=== PATIENT | male | born 1935 | race Caucasian/White ===

== ENCOUNTER → 2018-04-14 | Outpatient (CLI) | payer MEDICARE, BC | END | disposition home or self-care (01) | LOC: LAB SHORT 11:42 → LAB EV 11:42 | DX: S50.312A Abrasion of left elbow, initial encounter (principal) | CPT/HCPCS: 87070; 87075; 87077; 87147; 87186; 87205 ==

== ENCOUNTER 2019-04-30 15:11 | Emergency (ER) | payer MEDICARE, BC ==
[~2019-04-30] VITALS: Ht 162.6 cm; Wt 68.0 kg
[2019-04-30] MEDS ORDERED: Simvastatin10 MG PO (15:19)
[2019-04-30] MEDS ORDERED: LORCET 5-325 M1 EACH PO (15:19)
[2019-04-30] MEDS ORDERED: WIXELA 500-501 EACH INH (15:19)
[2019-04-30] MEDS ORDERED: Protonix40 MG PO (15:20)
[2019-04-30] MEDS ORDERED: DABI150C (15:20)
[2019-04-30 16:11] LABS: BASOPHILS ABSOLUTE AUTO 0.03 K/mm3 (0.00-0.23); BASOPHILS PERCENT AUTO 0 % (0-2); EOSINOPHILS ABSOLUTE AUTO 0.05 K/mm3 (0.00-0.68); EOSINOPHILS PERCENT AUTO 1 % (0-6); Hematocrit 39.9 % (37.0-53.0); Hemoglobin 13.6 g/dL (13.5-17.5); IMMATURE GRAN ABSOLUTE AUTO 0.03 K/mm3 (0.00-0.10); IMMATURE GRAN PERCENT AUTO 0 % (0-1); LYMPHOCYTES ABSOLUTE AUTO 0.48 K/mm3 (0.84-5.20); LYMPHOCYTES PERCENT AUTO 7 % (21-46); MONOCYTES ABSOLUTE AUTO 0.71 K/mm3 (0.16-1.47); MONOCYTES PERCENT AUTO 10 % (4-13); Mean Corpuscular HGB 31.5 pg (26.0-34.0); Mean Corpuscular HGB Conc 34.1 g/dL (31.5-36.5); Mean Corpuscular Volume 92 fL (80-100); Mean Platelet Volume 10.2 fL (9.1-12.4); NEUTROPHILS ABSOLUTE AUTO 5.99 K/mm3 (1.96-9.15); NEUTROPHILS PERCENT AUTO 82 % (41-73); Platelet Count 184 K/mm3 (150-400); Red Blood Cell Count 4.32 M/mm3 (4.30-5.90); White Blood Cell Count 7.29 K/mm3 (4.00-11.30)
[2019-04-30 16:31] LABS: Alanine Aminotransfer (ALT/SGP 27 U/L (12-78); Albumin, Blood 3.3 g/dL (3.4-5.0); Albumin/Globulin Ratio 1.1 (0.8-1.8); Alk Phos 69 U/L (50-136); Anion Gap 5 mmol/L (6-16); Aspartate Aminotrans (AST/SGOT 26 U/L (12-37); Bilirubin, Total 0.7 mg/dL (0.1-1.0); Blood Urea Nitrogen 16 mg/dL (8-24); Bun/Creatinine Ratio 14.2 (12.0-20.0); CO2, Blood 24 mmol/L (21-32); Calcium, Blood 9.1 mg/dL (8.5-10.1); Chloride, Blood 107 mmol/L (98-108); Creatinine, Blood 1.13 mg/dL (0.60-1.20); Glomerular Filtration Rate >60 (60-); Glucose, Blood 111 mg/dL (70-99); Potassium, Blood 3.9 mmol/L (3.5-5.5); Sodium, Blood 136 mmol/L (136-145); Total Protein, Blood 6.3 g/dL (6.4-8.2)
[2019-04-30] MEDS ORDERED: Pepto-Bismol262 MG PO (17:09)
== END 2019-04-30 17:18 | disposition home or self-care (01) ==
LOC: ER 15:11
PROVIDERS: Physician Assistant
DX: K52.9 Noninfective gastroenteritis and colitis, unspecified (principal); Z85.038 Personal history of other malignant neoplasm of large intestine; Z79.899 Other long term (current) drug therapy; Z79.01 Long term (current) use of anticoagulants
CPT/HCPCS: 36415; 74176; 80053; 83690; 85025; 99284-25

== ENCOUNTER 2019-09-11 08:21 | Day surgery (SDC) | payer MEDICARE, BC ==
[~2019-09-11] VITALS: Ht 165.1 cm; Wt 72.3 kg
[~2019-09-11 08:21] MED LIST: ALBU90OI INH; BALANCED B-100100 MG PO; CALCIUM-MAGNES1 EAC3 PO; DABI150C; DABI150C PO; LORCET 5-325 M1 EACH PO; METAMUCIL0.4 GM PO; MIRALAX17 GM PO; MSM500 MG PO; PANT40 PO; PREVAGEN PO; Pepto-Bismol262 MG PO; Protonix40 MG PO; SIMV10 PO; Simvastatin10 MG PO; VITAMIN B122500 MCG PO; VITAMIN D32000 UNI3 PO; WIXELA 500-501 EACH INH
--- NOTE | 2019-09-11 09:46 | NUR ---
09/11/19 0946 Marlene Dorantes NO ANESTHESIA TIME; LOCAL ANESTHESIA.
== END 2019-09-11 10:50 | disposition home or self-care (01) ==
LOC: ORSCSDS 08:21
PROVIDERS: Podiatrist Foot & Ankle Surgery
PROC: 0QBN0ZZ Excision of Right Metatarsal, Open Approach (ICD-10-PCS; principal; 2019-09-11 10:00)
DX: M89.8X7 Other specified disorders of bone, ankle and foot (principal); Z86.73 Personal history of transient ischemic attack (TIA), and cerebral infarction without residual deficits; J45.909 Unspecified asthma, uncomplicated; Z79.899 Other long term (current) drug therapy
CPT/HCPCS: J0171; J0690; J2250; J3010; J7120

== ENCOUNTER 2020-05-10 08:26 | Day surgery (SDC) | payer MEDICARE, BC ==
[~2020-05-10] VITALS: Ht 165.1 cm; Wt 68.0 kg
[~2020-05-10 08:26] MED LIST changes: +ACET120S PR; +DONEPEZIL HCL10 MG PO; +NUTRISOURCE FI1 EACH PO; -VITAMIN B122500 MCG PO; +VITAMIN B125000 MC1 PO; +VITAMIN D3-ALO1 EACH PO; +VITAMIN D310 MC4 PO; -VITAMIN D32000 UNI3 PO; +WIXELA 500-501 EAC1
--- NOTE | 2020-05-10 13:45 | NUR ---
PT/SON ARE ASKING IF PT'S HEARING AIDS ARE HERE, PT STATES HE LOST THEM. PT HAD ASKED EARLIER IF HE SHOULD KEEP THEM IN FOR PROCEDURE AND WAS TOLD YES BY BOTH THIS RN AND JAZMINR RN. THIS RN DID NOT SEE HEARING AIDS IN PATIENT WHEN PT ASKED THAT QUESTION, BUT DID NOT LOOK CLOSELY TO CHECK, PT WAS AND IS [facility] ON ADMIT AND THRU [facility]ERY WITH ABOUT THE SAME LEVEL OF HEARING BEFORE/AFTER PROCEDURE. CALLED CINDY IN HOUSEKEEPING, RETRIEVED LINEN FROM [address] AND BOTH SHE AND I WENT THRU [facility]EN LOOKING FOR AIDS, BOTH OF US ALONG WITH HOLLIS SANCHEZ AND EDGAR ALSO SEARCHED [facility] AND CONTROL ROOM WITH NO AIDS SEEN. CALLED IAN BUSTOS AND SHE DOES NOT REMEMBER SEEING HEARING AIDS EITHER. SON HAS NOW GONE TO PT'S HOUSE TO SEE IF THEY ARE THERE, PT ADMITS VERBALLY HE MAY HAVE LEFT THEM AT HOME "HE HAS BEEN KNOWN TO FORGET TO PUT THEM IN", SITUATION REPORTED TO PRERNA.
--- NOTE | 2020-05-10 13:55 | NUR ---
SON RETURNS REPORTING HEARING AIDS IN QUESTION ARE AT HOME, PT CONFIRMS SON'S PICTURES TAKE OF THEM
--- NOTE | 2020-05-10 15:04 | NUR ---
PT DRESSED, IV DC'D INTACT, TR BANDS REMOVED BILAT, DRESSINGS PLACED, L/R SPLINTS PLACED. SITES STABLE, PT DC'D AND CHOOSES TO AMBULATE OUT WITH SON DRIVING PT HOME.
== END 2020-05-10 15:42 | disposition home or self-care (01) ==
LOC: MHTC 08:26
DX: I35.0 Nonrheumatic aortic (valve) stenosis (principal); I25.10 Atherosclerotic heart disease of native coronary artery without angina pectoris; E78.00 Pure hypercholesterolemia, unspecified; E78.5 Hyperlipidemia, unspecified; G47.33 Obstructive sleep apnea (adult) (pediatric); K21.9 Gastro-esophageal reflux disease without esophagitis; J45.909 Unspecified asthma, uncomplicated; I44.0 Atrioventricular block, first degree; I49.3 Ventricular premature depolarization; I45.2 Bifascicular block; Z79.01 Long term (current) use of anticoagulants; Z86.73 Personal history of transient ischemic attack (TIA), and cerebral infarction without residual deficits; Z79.899 Other long term (current) drug therapy
CPT/HCPCS: 76937; 93454; 99152; 99153; C1769; C1894; J1644; J2250; J3010; J7030; J7050; Q9967

== ENCOUNTER 2020-08-07 16:37 | Inpatient (IN) | payer OTHER, MEDICARE, BC ==
[~2020-08-07] VITALS: Ht 162.6 cm; Wt 64.0 kg
[2020-08-07 17:20] LABS: BASOPHILS ABSOLUTE AUTO 0.03 K/mm3 (0.00-0.23); BASOPHILS PERCENT AUTO 1 % (0-2); EOSINOPHILS ABSOLUTE AUTO 0.14 K/mm3 (0.00-0.68); EOSINOPHILS PERCENT AUTO 2 % (0-6); Hematocrit 38.6 % (37.0-53.0); Hemoglobin 12.8 g/dL (13.5-17.5); IMMATURE GRAN ABSOLUTE AUTO 0.03 K/mm3 (0.00-0.10); IMMATURE GRAN PERCENT AUTO 1 % (0-1); LYMPHOCYTES ABSOLUTE AUTO 0.64 K/mm3 (0.84-5.20); LYMPHOCYTES PERCENT AUTO 11 % (21-46); MONOCYTES ABSOLUTE AUTO 0.67 K/mm3 (0.16-1.47); MONOCYTES PERCENT AUTO 11 % (4-13); Mean Corpuscular HGB Conc 33.2 g/dL (31.5-36.5); Mean Corpuscular Volume 94 fL (80-100); NEUTROPHILS ABSOLUTE AUTO 4.57 K/mm3 (1.96-9.15); NEUTROPHILS PERCENT AUTO 75 % (41-73); Platelet Count 84 K/mm3 (150-400); RDW Coefficient Variation 13.2 % (11.7-14.2); RDW Standard Deviation 45.1 fL (35.1-46.3); Red Blood Cell Count 4.13 M/mm3 (4.30-5.90); White Blood Cell Count 6.08 K/mm3 (4.00-11.30)
[2020-08-07 17:47] LABS: Alanine Aminotransfer (ALT/SGP 28 U/L (12-78); Albumin, Blood 3.4 g/dL (3.4-5.0); Albumin/Globulin Ratio 0.9 (0.8-1.8); Alk Phos 65 U/L (50-136); Anion Gap 6 mmol/L (6-16); Aspartate Aminotrans (AST/SGOT 27 U/L (12-37); Bilirubin, Total 0.6 mg/dL (0.1-1.0); Blood Urea Nitrogen 21 mg/dL (8-24); Bun/Creatinine Ratio 19.3 (12.0-20.0); CO2, Blood 24 mmol/L (21-32); Calcium, Blood 9.2 mg/dL (8.5-10.1); Chloride, Blood 109 mmol/L (98-108); Creatinine, Blood 1.09 mg/dL (0.60-1.20); Globulin, Blood 3.7 g/dL (2.2-4.0); Glomerular Filtration Rate >60 (60-); Glucose, Blood 102 mg/dL (70-99); Potassium, Blood 4.3 mmol/L (3.5-5.5); Sodium, Blood 139 mmol/L (136-145); Total Protein, Blood 7.1 g/dL (6.4-8.2); Troponin I 0.039 ng/mL (0.000-0.040)
[2020-08-07 17:48] LABS: International Normalized Ratio 1.06; Prothrombin Time Results 11.3 Sec (9.7-11.5)
[2020-08-07] MEDS ORDERED: WIXELA 500-501 EAC1 INH (18:41)
[2020-08-07 19:21] LABS: Influenza A, PCR Negative (NEGATIVE); Influenza B, PCR Negative (NEGATIVE); Resp Syncytial Virus, PCR Negative (NEGATIVE); SARS-Cov-2 (COVID-19) PCR, MMC Positive (NEGATIVE)
[2020-08-07] MEDS ORDERED: Vitamin D2000 UNIT PO (21:43)
[2020-08-07] MEDS ORDERED: [UNRECOGNIZED DRUG - CODE] SL (21:43)
--- NOTE | 2020-08-07 22:00 | NUR ---
PT ADMITTED TO ROOM ICU 9 FROM ED UNDER ICU STATUS. PT ARRIVES TO ROOM AT 2120. PT UPON PLACING CARDIAC MONITORING, WAS NOTED TO BE IN 3RD DEGREE HEART BLOCK. HEART RATE MAINTAINS NEAR 40 BPM. PT COMPLETELY ASYMPTOMATIC WITH THIS. PT LERT AND ORIENTED. PLEASANT AND COOPERATIVE WTTH CARE AND ASSESSMENT. DENIES PAIN OR DYSPNEA AT THIS TIME. WILL REVIEW CHART AND PLAN OF CARE FOR THIS PT. DR MIRELES COMES TO UNIT AND DISCUSSES PLAN FOR PACEMAKER PLACEMENT FOR PT TOMORROW.
--- NOTE | 2020-08-08 01:12 | NUR ---
PT'S ONLY COMPLAINT IS NOT BEING COMFORTABLE IN HOSPITAL BED. ASSISSTED PT WITH POSITIONING TO WHERE HE IS NOW COMFORTABLE. PT HAS VOIDED Q.S. CONTINUES IN 3RD DEGREE HEART BLOCK. ASYMPTOMATIC. HEART RATE HAS BEEN DOWN TO 32 BPM WHICH WAS ONLY FOR A SHORT MOMENT. PT HAS NO ISSUES OR SYMPTOMS WITH THIS. CURRENTLY MAINTAINS 38-41 BPM. WILL CONTINUE TO MONITOR PT.
[2020-08-08 04:48] LABS: BASOPHILS ABSOLUTE AUTO 0.05 K/mm3 (0.00-0.23); BASOPHILS PERCENT AUTO 1 % (0-2); EOSINOPHILS ABSOLUTE AUTO 0.18 K/mm3 (0.00-0.68); EOSINOPHILS PERCENT AUTO 3 % (0-6); Hematocrit 34.4 % (37.0-53.0); Hemoglobin 11.5 g/dL (13.5-17.5); IMMATURE GRAN ABSOLUTE AUTO 0.02 K/mm3 (0.00-0.10); IMMATURE GRAN PERCENT AUTO 0 % (0-1); LYMPHOCYTES ABSOLUTE AUTO 0.62 K/mm3 (0.84-5.20); LYMPHOCYTES PERCENT AUTO 12 % (21-46); MONOCYTES ABSOLUTE AUTO 0.67 K/mm3 (0.16-1.47); MONOCYTES PERCENT AUTO 13 % (4-13); Mean Corpuscular HGB Conc 33.4 g/dL (31.5-36.5); Mean Corpuscular Volume 93 fL (80-100); Mean Platelet Volume 11.1 fL (9.1-12.4); NEUTROPHILS ABSOLUTE AUTO 3.75 K/mm3 (1.96-9.15); NEUTROPHILS PERCENT AUTO 71 % (41-73); Platelet Count 70 K/mm3 (150-400); RDW Standard Deviation 44.3 fL (35.1-46.3); Red Blood Cell Count 3.71 M/mm3 (4.30-5.90); White Blood Cell Count 5.29 K/mm3 (4.00-11.30)
[2020-08-08 04:59] LABS: Anion Gap 4 mmol/L (6-16); Blood Urea Nitrogen 18 mg/dL (8-24); Bun/Creatinine Ratio 18.2 (12.0-20.0); CO2, Blood 29 mmol/L (21-32); Calcium, Blood 9.1 mg/dL (8.5-10.1); Chloride, Blood 109 mmol/L (98-108); Creatinine, Blood 0.99 mg/dL (0.60-1.20); Glomerular Filtration Rate >60 (60-); Glucose, Blood 99 mg/dL (70-99); Magnesium, Blood 2.1 mg/dL (1.6-2.4); Potassium, Blood 4.2 mmol/L (3.5-5.5); Sodium, Blood 142 mmol/L (136-145)
--- NOTE | 2020-08-08 06:30 | NUR ---
PT HAS MAINTAINED 3RD DEGREE HEART BLOCK WITH HEART RATES 32-40 BPM. ASYMPTOMATIC WITH THIS. PT HAS BEEN ABLE TO MOVE ABOUT BED ON HIS OWN. HAVE ASSISTED WITH BOOSTING IN BED AND WITH PILLOWS FOR COMFORT. PT HAS NO COMPLAINTS OF CHEST PAIN OR PRESSURE. NO COMPLAINTS OF DYSPNEA. HAS MAINTAINED ON ROOM AIR WITH OXYGEN SATURATIONS MAINTAINING > 90 PERCENT. WILL CONTINUE TO MONITOR PT, AND WILL REPORT OFF TO ONCOMING RN.
--- NOTE | 2020-08-08 07:52 | NUR ---
ASSUMED CARE REPORT RECIEVED. PT IS LAYING IN BED AWAKE, ALERT, AND ORIENTED. PT ANSWERS QUESTIONS APPROPRIATELY. PT DENIES ANY PAIN, DISCOMFORT, OR SOB. VITAL SIGNS STABLE, PT ON ROOM AIR. PT WITH 3RD DEGREE HEARTBLOCK WITH RATE 39-43. BP STABLE. PT ASYMPTOMATIC WITH HR. IV'S SALINE LOCKED. PT NPO AT THIS TIME. PT USING URINAL AT BEDSIDE INDEPENDENTLY. WILL CONTINUE TO MONITOR.
--- NOTE | 2020-08-08 09:12 | NUR ---
DR MIKE MCKEON CAME TO SEE PT AND DISCUSS PLAN OF CARE. PLAN FOR PT TO GO TO [facility] FOR PACER PLACEMENT AROUND 1400 TODAY. PT WITH NO ACUTE COMPLAINTS AT THIS TIME. WILL CONTINUE TO MONITOR.
--- NOTE | 2020-08-08 10:52 | NUR ---
Echo done by Kayla Estevez.
--- NOTE | 2020-08-08 17:07 | NUR ---
TRANSFER TO PCU PT TRANSFERED TO PCU 7 DIRECTLY FROM [facility]. REPORT CALLED TO AKASH GOLDEN. ALL QUESTIONS ANSWERED. PT MEDS AND BELONGINGS TAKEN TO U 7.
--- NOTE | 2020-08-08 17:41 | NUR ---
PT TRANSFERRED FROM [facility]ART [facility]ENTER. BEDSIDE REPORT RECIEVED AND PRESSURE DRESSING NOTED TO LEFT SHOULDER. NO SIGN OF SWELLING, BLEEDING, BRUISING. REPORT FROM CHERYL WELL. PT ON RA, PACED ON TELE AT 59. SLING IN PLACE, STATES MILD PAIN TO LEFT SHOULDER. WILL MEDICATE ABLE
--- NOTE | 2020-08-08 18:20 | NUR ---
CALL TO PT'S SON GERSON TO UPDATE ON HOW PROCEDURE WENT AND TO LET HIM KNOW OF NEW ROOM ASSIGNMENT. PT DENIES NEEDS OR CONCERNS AT THIS TIME.
[2020-08-09 04:22] LABS: BASOPHILS ABSOLUTE AUTO 0.05 K/mm3 (0.00-0.23); BASOPHILS PERCENT AUTO 1 % (0-2); EOSINOPHILS ABSOLUTE AUTO 0.11 K/mm3 (0.00-0.68); EOSINOPHILS PERCENT AUTO 1 % (0-6); Hematocrit 39.7 % (37.0-53.0); Hemoglobin 13.7 g/dL (13.5-17.5); IMMATURE GRAN ABSOLUTE AUTO 0.04 K/mm3 (0.00-0.10); IMMATURE GRAN PERCENT AUTO 1 % (0-1); LYMPHOCYTES ABSOLUTE AUTO 0.51 K/mm3 (0.84-5.20); LYMPHOCYTES PERCENT AUTO 6 % (21-46); MONOCYTES ABSOLUTE AUTO 0.77 K/mm3 (0.16-1.47); MONOCYTES PERCENT AUTO 9 % (4-13); Mean Corpuscular HGB Conc 34.5 g/dL (31.5-36.5); Mean Corpuscular Volume 90 fL (80-100); NEUTROPHILS ABSOLUTE AUTO 7.08 K/mm3 (1.96-9.15); NEUTROPHILS PERCENT AUTO 83 % (41-73); RDW Coefficient Variation 12.7 % (11.7-14.2); RDW Standard Deviation 41.7 fL (35.1-46.3); Red Blood Cell Count 4.42 M/mm3 (4.30-5.90); White Blood Cell Count 8.56 K/mm3 (4.00-11.30)
[2020-08-09 04:23] LABS: Mean Platelet Volume 10.8 fL (9.1-12.4); Platelet Count 89 K/mm3 (150-400)
[2020-08-09 04:35] LABS: Anion Gap 6 mmol/L (6-16); Blood Urea Nitrogen 24 mg/dL (8-24); Bun/Creatinine Ratio 23.3 (12.0-20.0); CO2, Blood 29 mmol/L (21-32); Calcium, Blood 8.9 mg/dL (8.5-10.1); Chloride, Blood 103 mmol/L (98-108); Creatinine, Blood 1.03 mg/dL (0.60-1.20); Glomerular Filtration Rate >60 (60-); Glucose, Blood 124 mg/dL (70-99); Sodium, Blood 138 mmol/L (136-145)
--- NOTE | 2020-08-09 06:00 | NUR ---
SHIFT SUMMARY NO ACUTE CHANGES THIS SHIFT. AXO. VSS EXCEPT PERSISTENT OFF AND ON HTN. ORDERS RECEIVED FOR PRN HYDRALZINE. AWAITING RESULTS FROM FOLLOWUP BP. PT 100% DUAL PACED. PRESSURE DRESSIGN INTACT TO LCW OVER PACER. NO EXCESS REDNESS/WARMTH NOTED TO SURROUNDING AREA. PT STATES BEING SORE BUT NOT VERY PAINFUL TO AREA. HAS BEEN, FOR THE MOST PART, INDEPENDENT IN ROOM. PT USES CALL LIGHT APPROIPRIATELY. WILL CONTINUE TO MONITOR UNTIL SHIFT CHANGE.
[2020-08-09] MEDS ORDERED: TOPROL XL25 MG PO (16:17)
[2020-08-13 08:10] LABS: HEPARIN INDUCED PLATELET AB 1.035 OD (0.000-0.400); SRA, LOW DOSE HEPARIN <1 % (0-20)
[2020-12-10] MEDS ORDERED: CIDAFLEX TABLE1 EAC1 PO (08:36)
[2020-12-10] MEDS ORDERED: ZOCOR20 MG PO (08:37)
[2020-12-10] MEDS ORDERED: DABI150C PO (08:37)
== END 2020-08-09 16:35 | disposition home or self-care (01) | DRG 242 ==
LOC: ER 16:37 → ICUW 16:38 → PCU 08-08 17:13
PROVIDERS: Emergency Medicine; Internal Medicine; Internal Medicine Cardiovascular Disease; Physician Assistant; ADMIT Internal Medicine
PROC: 0JH606Z Insertion of Pacemaker, Dual Chamber into Chest Subcutaneous Tissue and Fascia, Open Approach (ICD-10-PCS; principal; 2020-08-08)
PROC: 02H63JZ Insertion of Pacemaker Lead into Right Atrium, Percutaneous Approach (ICD-10-PCS; 2020-08-08)
PROC: 02HK3JZ Insertion of Pacemaker Lead into Right Ventricle, Percutaneous Approach (ICD-10-PCS; 2020-08-08)
DX: I44.2 Atrioventricular block, complete (principal); U07.1 COVID-19; Z95.2 Presence of prosthetic heart valve; Z90.49 Acquired absence of other specified parts of digestive tract; Z85.038 Personal history of other malignant neoplasm of large intestine; G47.33 Obstructive sleep apnea (adult) (pediatric); I48.0 Paroxysmal atrial fibrillation; K21.9 Gastro-esophageal reflux disease without esophagitis; J45.909 Unspecified asthma, uncomplicated; Z92.21 Personal history of antineoplastic chemotherapy; D69.6 Thrombocytopenia, unspecified; R13.10 Dysphagia, unspecified; I25.10 Atherosclerotic heart disease of native coronary artery without angina pectoris
CPT/HCPCS: 0241U; 33208; 36415; 71045; 71046; 76937; 80048; 80053; 83735; 84443; 84484; 85025; 85610; 85730; 86022; 93005; 93010; 93306; 97110; 97116; 97161; 99152; 99153; 99285-25; A9270; C1781; C1785; C1894; C1898; G0378; J0360; J0690; J1644; J1940; J2250; J3010; J7040

== ENCOUNTER → 2020-10-30 | Outpatient (CLI) | payer MEDICARE, BC ==
[~2020-10-30] MED LIST changes: +TOPROL XL25 MG PO; +Vitamin D2000 UNIT PO; +WIXELA 500-501 EAC1 INH; +[UNRECOGNIZED DRUG - CODE] SL
== END ==
LOC: LAB SHORT 17:27
DX: L08.9 Local infection of the skin and subcutaneous tissue, unspecified (principal); D48.5 Neoplasm of uncertain behavior of skin; Z48.02 Encounter for removal of sutures; Z88.5 Allergy status to narcotic agent
CPT/HCPCS: 87070; 87077; 87147; 87186; 87205

== ENCOUNTER 2020-12-20 05:55 | Day surgery (SDC) | payer MEDICARE, BC ==
[~2020-12-20] VITALS: Ht 162.6 cm; Wt 67.5 kg
[~2020-12-20 05:55] MED LIST changes: +CIDAFLEX TABLE1 EAC1 PO; +ZOCOR20 MG PO
--- NOTE | 2020-12-20 06:23 | NUR ---
BROUGHT INTO [facility] ADMISSION STARTED. Ambulatory in Day Surgery, History, Chart, Medications and Allergies reviewed before start of procedure. Patient confirms NPO status and agrees with scheduled surgery.
--- NOTE | 2020-12-20 09:33 | NUR ---
PATIENT RESTING. RESPONDS TO VOICE AND TOUCH. ABLE TO REPOSITION SELF IN BED. TOLERATED PO FLUIDS. INCISIONS X4 CDI WITH DURABOND IN PLACE. WILL CONTINUE TO MONITOR BP AND ADDRESS IF IT REMAINS HIGH. PROVIDED WARM BLANKETS.
--- NOTE | 2020-12-20 10:44 | NUR ---
Ambulatory in Day Surgery Discharge instructions reviewed with patient. Patient verbalizes understanding. Copy given to patient to take home. Dressing to procedure site clean, dry, intact with no visible drainage, swelling, erythema or bruising noted. Patient States Post-Procedure ride home has been arranged. Discharged via wheelchair to private car for ride home. ALL BELONGINGS RETURNED TO PATIENT. BLOOD PRESSURE BELOW TARGET RANGE FOR GIVING FURTHER BLOOD PRESSURE MEDICATIONS.
== END 2020-12-20 10:50 | disposition home or self-care (01) ==
LOC: ORSCMMR 05:55 → ORD 10:30 → ORSCMMR 10:50
PROVIDERS: Surgery
PROC: 8E0W4CZ Robotic Assisted Procedure of Trunk Region, Percutaneous Endoscopic Approach (ICD-10-PCS; principal; 2020-12-20 07:30)
PROC: 0FT44ZZ Resection of Gallbladder, Percutaneous Endoscopic Approach (ICD-10-PCS; principal; 2020-12-20 07:30)
PROC: BF031ZZ Plain Radiography of Gallbladder and Bile Ducts using Low Osmolar Contrast (ICD-10-PCS; principal; 2020-12-20 07:30)
DX: K80.10 Calculus of gallbladder with chronic cholecystitis without obstruction (principal); I48.91 Unspecified atrial fibrillation; G47.33 Obstructive sleep apnea (adult) (pediatric); J45.909 Unspecified asthma, uncomplicated; K21.9 Gastro-esophageal reflux disease without esophagitis; Z86.73 Personal history of transient ischemic attack (TIA), and cerebral infarction without residual deficits; Z79.899 Other long term (current) drug therapy; Z95.0 Presence of cardiac pacemaker; Z85.038 Personal history of other malignant neoplasm of large intestine
CPT/HCPCS: 47563; S2900; 74300; 88304; C1729; J0360; J0690; J1100; J1885; J2405; J2704; J3010; J7120

== ENCOUNTER → 2021-01-28 | Outpatient (CLI) | payer MEDICARE, BC | END | disposition home or self-care (01) | LOC: LAB SHORT 17:06 | DX: R31.0 Gross hematuria (principal); R30.0 Dysuria | CPT/HCPCS: 87077; 87086; 87147; 87186 ==

== ENCOUNTER → 2022-05-26 | Outpatient (CLI) | payer MEDICARE, BC ==
[2022-05-26 11:57] LABS: BASOPHILS ABSOLUTE AUTO 0.08 K/mm3 (0.00-0.23); BASOPHILS PERCENT AUTO 1 % (0-2); EOSINOPHILS PERCENT AUTO 3 % (0-6); Hematocrit 41.1 % (37.0-53.0); Hemoglobin 13.8 g/dL (13.5-17.5); IMMATURE GRAN ABSOLUTE AUTO 0.03 K/mm3 (0.00-0.10); IMMATURE GRAN PERCENT AUTO 0 % (0-1); LYMPHOCYTES ABSOLUTE AUTO 0.74 K/mm3 (0.84-5.20); LYMPHOCYTES PERCENT AUTO 11 % (21-46); MONOCYTES PERCENT AUTO 10 % (4-13); Mean Corpuscular HGB 31.5 pg (26.0-34.0); Mean Corpuscular HGB Conc 33.6 g/dL (31.5-36.5); Mean Corpuscular Volume 94 fL (80-100); Mean Platelet Volume 11.2 fL (9.1-12.4); NEUTROPHILS ABSOLUTE AUTO 5.23 K/mm3 (1.96-9.15); NEUTROPHILS PERCENT AUTO 75 % (41-73); Platelet Count 143 K/mm3 (150-400); RDW Standard Deviation 47.8 fL (35.1-46.3); Red Blood Cell Count 4.38 M/mm3 (4.30-5.90); White Blood Cell Count 6.98 K/mm3 (4.00-11.30)
[2022-05-26 12:28] LABS: Albumin, Blood 3.6 g/dL (3.4-5.0); Albumin/Globulin Ratio 1.1 (0.8-1.8); Bilirubin, Total 0.8 mg/dL (0.1-1.0); Calcium, Blood 9.1 mg/dL (8.5-10.1); Creatinine, Blood 1.27 mg/dL (0.60-1.20); Globulin, Blood 3.2 g/dL (2.2-4.0); Potassium, Blood 4.3 mmol/L (3.5-5.5); Total Protein, Blood 6.8 g/dL (6.4-8.2)
== END ==
LOC: LAB SHORT 11:49 → LAB 11:49
PROVIDERS: Chiropractor
DX: R60.0 Localized edema (principal)
CPT/HCPCS: 80053; 83880; 84484; 85025

== ENCOUNTER 2023-07-16 07:24 | Day surgery (SDC) | payer MEDICARE, BC ==
[~2023-07-16] VITALS: Ht 162.6 cm; Wt 64.8 kg
[2023-07-16] VITALS (11 sets, daily range): BP systolic 113–138; BP diastolic 52–104
[~2023-07-16 07:24] MED LIST changes: +ELIQUIS5 M2 PO; +FURO20 PO; +LISI5 PO; +POTA10T PO
--- NOTE | 2023-07-16 07:57 | NUR ---
3 OTHER IV ATTEMPTS.
--- NOTE | 2023-07-16 07:58 | NUR ---
Ambulatory in Day SurgeryPre-Op teaching done. Pt verbalizes understanding. History, Chart, Medications and Allergies reviewed before start of procedure.Patient confirms NPO status and agrees with scheduled surgery. Patient States Post-Procedure ride home has been arranged.
--- NOTE | 2023-07-16 10:55 | NUR ---
PT STABLE STILL SLIGHT COUGH ON 2L O2 NC 3 SITES C/D/I WITH DERMA PETERS, VSS, PT ALERT AND ORIENTED CONT TO DENY PAIN AND ASKING FOR SOMETHING TO DRINK, REPORT TO CAMELIA Gipson RN IN [facility] FOR RECOVERY
--- NOTE | 2023-07-16 11:21 | NUR ---
PT CONTINUES TO HAVE SIGNIFICANT PRODUCTIVE COUGHING D/T URI A WEEK AGO.
== END 2023-07-16 11:34 | disposition home or self-care (01) ==
LOC: ORSCMMR 07:24 → ORD 10:00 → ORSCMMR 11:34
PROVIDERS: Surgery
PROC: 0YU54JZ Supplement Right Inguinal Region with Synthetic Substitute, Percutaneous Endoscopic Approach (ICD-10-PCS; principal; 2023-07-16 08:30)
PROC: 8E0W4CZ Robotic Assisted Procedure of Trunk Region, Percutaneous Endoscopic Approach (ICD-10-PCS; principal; 2023-07-16 08:30)
DX: K40.90 Unilateral inguinal hernia, without obstruction or gangrene, not specified as recurrent (principal); K41.30 Unilateral femoral hernia, with obstruction, without gangrene, not specified as recurrent; I25.10 Atherosclerotic heart disease of native coronary artery without angina pectoris; I12.9 Hypertensive chronic kidney disease with stage 1 through stage 4 chronic kidney disease, or unspecified chronic kidney disease; N18.30 Chronic kidney disease, stage 3 unspecified; I48.91 Unspecified atrial fibrillation; G47.33 Obstructive sleep apnea (adult) (pediatric); K21.9 Gastro-esophageal reflux disease without esophagitis; Z79.899 Other long term (current) drug therapy
CPT/HCPCS: 49650; 49659; S2900; A9270; C1781; J1100; J2250; J2371; J2405; J2704; J3010; J7120

== ENCOUNTER → 2023-11-18 | Outpatient (CLI) | payer MEDICARE, BC ==
[2023-11-18 17:40] LABS: BASOPHILS ABSOLUTE AUTO 0.05 K/mm3 (0.00-0.23); BASOPHILS PERCENT AUTO 1 % (0-2); EOSINOPHILS ABSOLUTE AUTO 0.11 K/mm3 (0.00-0.68); EOSINOPHILS PERCENT AUTO 1 % (0-6); Hemoglobin 13.5 g/dL (13.5-17.5); IMMATURE GRAN ABSOLUTE AUTO 0.03 K/mm3 (0.00-0.10); IMMATURE GRAN PERCENT AUTO 0 % (0-1); LYMPHOCYTES ABSOLUTE AUTO 0.52 K/mm3 (0.84-5.20); LYMPHOCYTES PERCENT AUTO 6 % (21-46); MONOCYTES PERCENT AUTO 9 % (4-13); Mean Corpuscular HGB 31.7 pg (26.0-34.0); Mean Corpuscular HGB Conc 33.8 g/dL (31.5-36.5); Mean Corpuscular Volume 94 fL (80-100); Mean Platelet Volume 11.6 fL (9.1-12.4); NEUTROPHILS ABSOLUTE AUTO 7.73 K/mm3 (1.96-9.15); NEUTROPHILS PERCENT AUTO 84 % (41-73); Platelet Count 147 K/mm3 (150-400); RDW Coefficient Variation 13.4 % (11.7-14.2); RDW Standard Deviation 45.4 fL (35.1-46.3); Red Blood Cell Count 4.26 M/mm3 (4.30-5.90); White Blood Cell Count 9.24 K/mm3 (4.00-11.30)
[2023-11-18 17:54] LABS: Bilirubin, Total 0.7 mg/dL (0.1-1.0); Calcium, Blood 9.7 mg/dL (8.5-10.1); Creatinine, Blood 1.39 mg/dL (0.60-1.20); Globulin, Blood 4.1 g/dL (2.2-4.0); Potassium, Blood 4.5 mmol/L (3.5-5.5); Total Protein, Blood 8.1 g/dL (6.4-8.2)
== END | disposition home or self-care (01) ==
LOC: LAB SHORT 17:34
PROVIDERS: Physician Assistant Surgical
DX: R10.9 Unspecified abdominal pain (principal)
CPT/HCPCS: 80053; 85025

== ENCOUNTER 2024-04-21 00:55 | Emergency (ER) | payer MEDICARE, BC ==
[~2024-04-21] VITALS: Ht 162.6 cm; Wt 63.5 kg
[2024-04-21 01:00] VITALS: BP 136/90
== END 2024-04-21 03:06 | disposition home or self-care (01) ==
LOC: ER 00:55
DX: L76.21 Postprocedural hemorrhage of skin and subcutaneous tissue following a dermatologic procedure (principal); Z85.038 Personal history of other malignant neoplasm of large intestine; Z86.73 Personal history of transient ischemic attack (TIA), and cerebral infarction without residual deficits; Z95.2 Presence of prosthetic heart valve; Z90.49 Acquired absence of other specified parts of digestive tract; Z88.5 Allergy status to narcotic agent; Z88.8 Allergy status to other drugs, medicaments and biological substances; Z79.01 Long term (current) use of anticoagulants; Z79.899 Other long term (current) drug therapy
CPT/HCPCS: 12011; 99283-25

== ENCOUNTER 2024-06-23 10:58 | Emergency (ER) | payer MEDICARE, BC ==
[~2024-06-23] VITALS: Ht 162.6 cm; Wt 61.2 kg
[2024-06-23 11:53] LABS: BASOPHILS ABSOLUTE AUTO 0.06 K/mm3 (0.00-0.23); BASOPHILS PERCENT AUTO 1 % (0-2); EOSINOPHILS PERCENT AUTO 0 % (0-6); Hematocrit 35.6 % (37.0-53.0); Hemoglobin 11.8 g/dL (13.5-17.5); IMMATURE GRAN ABSOLUTE AUTO 0.04 K/mm3 (0.00-0.10); IMMATURE GRAN PERCENT AUTO 1 % (0-1); LYMPHOCYTES ABSOLUTE AUTO 0.43 K/mm3 (0.84-5.20); LYMPHOCYTES PERCENT AUTO 5 % (21-46); MONOCYTES ABSOLUTE AUTO 0.74 K/mm3 (0.16-1.47); MONOCYTES PERCENT AUTO 9 % (4-13); Mean Corpuscular HGB 31.5 pg (26.0-34.0); Mean Corpuscular HGB Conc 33.1 g/dL (31.5-36.5); Mean Corpuscular Volume 95 fL (80-100); Mean Platelet Volume 10.3 fL (9.1-12.4); NEUTROPHILS ABSOLUTE AUTO 6.99 K/mm3 (1.96-9.15); NEUTROPHILS PERCENT AUTO 85 % (41-73); Platelet Count 145 K/mm3 (150-400); RDW Coefficient Variation 13.4 % (11.7-14.2); RDW Standard Deviation 46.8 fL (35.1-46.3); Red Blood Cell Count 3.75 M/mm3 (4.30-5.90); White Blood Cell Count 8.26 K/mm3 (4.00-11.30)
[2024-06-23 12:21] LABS: Albumin, Blood 3.5 g/dL (3.4-5.0); Albumin/Globulin Ratio 0.9 (0.8-1.8); Bilirubin, Total 0.6 mg/dL (0.1-1.0); Bun/Creatinine Ratio 24.3 (12.0-20.0); Calcium, Blood 9.8 mg/dL (8.5-10.1); Creatinine, Blood 1.44 mg/dL (0.60-1.20); Globulin, Blood 3.9 g/dL (2.2-4.0); Magnesium, Blood 2.1 mg/dL (1.6-2.4); Phosphorus, Blood 2.8 mg/dL (2.5-4.9); Potassium, Blood 4.3 mmol/L (3.5-5.5); Total Protein, Blood 7.4 g/dL (6.4-8.2)
[2024-06-23] MEDS ORDERED: Human Prothrombin Complx(Pcc) 2,000 UNIT in Water For Injection,Sterile 80 ML IV ONE (12:45)
[2024-06-23 13:19] LABS: International Normalized Ratio 1.02; Prothrombin Time Results 10.9 Sec (9.7-11.5)
[2024-06-23 16:45] VITALS: BP 133/75
== END 2024-06-23 17:20 | disposition short-term general hospital (02) ==
LOC: ER 10:58
PROVIDERS: Student in an Organized Health Care Education/Training Program
DX: I62.01 Nontraumatic acute subdural hemorrhage (principal); I62.03 Nontraumatic chronic subdural hemorrhage; R41.82 Altered mental status, unspecified; Z88.5 Allergy status to narcotic agent; Z88.8 Allergy status to other drugs, medicaments and biological substances; Z79.899 Other long term (current) drug therapy
CPT/HCPCS: 70450; 71045; 80053; 83735; 84100; 85025; 85610; 85730; 96374-59; 99285-25; J7168

== ENCOUNTER → 2025-06-16 | Outpatient (CLI) | payer MEDICARE, BC ==
[2025-06-16 15:46] LABS: BASOPHILS ABSOLUTE AUTO 0.05 K/mm3 (0.00-0.23); BASOPHILS PERCENT AUTO 1 % (0-2); EOSINOPHILS ABSOLUTE AUTO 0.04 K/mm3 (0.00-0.68); EOSINOPHILS PERCENT AUTO 0 % (0-6); Hematocrit 32.0 % (37.0-53.0); Hemoglobin 10.8 g/dL (13.5-17.5); IMMATURE GRAN ABSOLUTE AUTO 0.04 K/mm3 (0.00-0.10); IMMATURE GRAN PERCENT AUTO 0 % (0-1); LYMPHOCYTES ABSOLUTE AUTO 0.50 K/mm3 (0.84-5.20); LYMPHOCYTES PERCENT AUTO 5 % (21-46); MONOCYTES ABSOLUTE AUTO 0.94 K/mm3 (0.16-1.47); MONOCYTES PERCENT AUTO 10 % (4-13); Mean Corpuscular HGB Conc 33.8 g/dL (31.5-36.5); Mean Corpuscular Volume 92 fL (80-100); NEUTROPHILS ABSOLUTE AUTO 8.11 K/mm3 (1.96-9.15); NEUTROPHILS PERCENT AUTO 84 % (41-73); NRBC ABSOLUTE 0.00 K/mm3 (0.00-0.02); NRBC Auto 0.0 /100 WBC (0.0-0.2); Platelet Count 167 K/mm3 (150-400); RDW Coefficient Variation 13.6 % (11.7-14.2); RDW Standard Deviation 45.3 fL (35.1-46.3)
[2025-06-16 16:34] LABS: Alanine Aminotransfer (ALT/SGP 23.0 U/L (12-78); Albumin, Blood 3.2 g/dL (3.4-5.0); Albumin/Globulin Ratio 0.8 (0.8-1.8); Anion Gap 11.0 mmol/L (3-11); Aspartate Aminotrans (AST/SGOT 22.0 U/L (12-37); Bilirubin, Total 0.5 mg/dL (0.1-1.0); Blood Urea Nitrogen 24.0 mg/dL (8-24); CO2, Blood 25.0 mmol/L (21-32); Calcium, Blood 8.7 mg/dL (8.5-10.1); Chloride, Blood 103.0 mmol/L (98-108); Creatinine, Blood 1.34 mg/dL (0.60-1.20); Globulin, Blood 3.9 g/dL (2.2-4.0); Glucose, Blood 115.0 mg/dL (70-99); Potassium, Blood 3.9 mmol/L (3.5-5.5); Sodium, Blood 135.0 mmol/L (136-145); Total Protein, Blood 7.1 g/dL (6.4-8.2)
== END ==
LOC: LAB SHORT 15:41 → LAB 15:41
PROVIDERS: Physician Assistant Medical
DX: R06.02 Shortness of breath (principal)
CPT/HCPCS: 80053; 85025